=== PATIENT | male | born 1960 | race Caucasian/White ===

== ENCOUNTER → 2016-06-25 | Outpatient (CLI) | payer OTHER ==
[~2016-06-25] MED LIST: ALBUTEROL0.63 MG/3 INH; ALBUTEROL17 GM INH; ASPIRIN EC81 M1 PO; ATENOLOL50 MG PO; AUGMENTIN PO; BREO ELLIPTA 21 EACH; DALIRESP500 MCG PO; HYDROCHLOROTHIA25 MG PO; IBUPROFEN PO; INVOKANA100 MG PO; JANUVIA50 MG PO; LINZESS290 MCG PO; LISINOPRIL10 MG PO; LISINOPRIL20 MG PO; NEURONTIN600 MG PO; NORVASC10 MG PO; OXYCONTIN PO; PAIN RELIEF650 MG PO; PREDNISONE PO; PREDNISONE10 M1 PO; SINGULAIR PO; SPIRIVA18 MCG INH; SYMBICORT INH; XANAX1 MG PO; ZITHROMAX PO
== END | disposition home or self-care (01) ==
LOC: SEKG 08:31
DX: R07.9 Chest pain, unspecified (principal); R00.2 Palpitations
CPT/HCPCS: 93225; 93226

== ENCOUNTER 2016-09-17 17:28 | Emergency (ER) | payer OTHER ==
--- NOTE | ~2016-09-17 | CR72 ---
[facility] A Service of [facility] RADIOLOGY TEXT RESULTS PATIENT: ANDRADE WHITLEY LOCATION: SED : 59 UNIT #: [id number] AGE: [address]: Daron Cueva MD SEX: M ORDER DR: [id number] [place] [id number] [id number] MR#: [id number] Acc #: [id number] NAME: ANDRADE WHITLEY. : 1960 SEX: M STUDY DATE/TIME: 09/17/2016 18:12 UNIT: SED ROOM: STUDY DESCRIPTION: CR Chest Single View Portable Attending Physician: Daron Cueva M.D. Ordering Physician: Daron Cueva M.D. Primary Care Physician: Ina Griffin M.D. MEDICAL IMAGING REPORT This report is preliminary unless electronic signature is present. EXAM Portable chest 09/17/16 INDICATIONS Cough and shortness of air intermittently for the last 1.5 weeks. History of COPD. FINDINGS AP portable chest is compared with 08/29/2015. Cardiac and mediastinal contours are normal. The lungs are emphysematous but clear. No pneumothorax is seen. IMPRESSION Emphysema. No active disease. Dictated by... Bradley Apodaca Jr., M.D. THIS IS AN ELECTRONICALLY VERIFIED REPORT Bradley Apodaca Jr., M.D. at 09/18/2016 2:07 PM SUGAR/navi TD: 09/17/2016 21:26 JOB #: [id number] MEDICAL IMAGING REPORT Page 1 of 1
[~2016-09-17 17:28] MED LIST changes: -AUGMENTIN PO; -BREO ELLIPTA 21 EACH; -DALIRESP500 MCG PO; -IBUPROFEN PO; -JANUVIA50 MG PO; -LISINOPRIL20 MG PO; -NEURONTIN600 MG PO; -OXYCONTIN PO; -PREDNISONE10 M1 PO; -SINGULAIR PO; -XANAX1 MG PO; -ZITHROMAX PO
[2016-09-17] MEDS ORDERED: IBUPROFEN PO (17:37)
[2016-09-17] MEDS ORDERED: INVOKANA100 MG PO (17:39)
[2016-09-17] MEDS ORDERED: SPIRIVA18 MCG INH (17:39)
[2016-09-17] MEDS ORDERED: DALIRESP500 MCG PO (17:39)
[2016-09-17] MEDS ORDERED: SINGULAIR PO (17:39)
[2016-09-17] MEDS ORDERED: JANUVIA50 MG PO (17:40)
[2016-09-17] MEDS ORDERED: ASPIRIN EC81 M1 PO (17:40)
[2016-09-17] MEDS ORDERED: BREO ELLIPTA 21 EACH (17:41)
[2016-09-17] MEDS ORDERED: XANAX1 MG PO (17:42)
[2016-09-17] MEDS ORDERED: ATENOLOL50 MG PO (17:42)
[2016-09-17] MEDS ORDERED: HYDROCHLOROTHIA25 MG PO (17:42)
[2016-09-17] MEDS ORDERED: LISINOPRIL20 MG PO (17:42)
[2016-09-17] MEDS ORDERED: NEURONTIN600 MG PO (17:43)
== END 2016-09-17 19:37 | disposition home or self-care (01) ==
LOC: SED 17:28
DX: J44.1 Chronic obstructive pulmonary disease with (acute) exacerbation (principal); J44.0 Chronic obstructive pulmonary disease with (acute) lower respiratory infection; J20.9 Acute bronchitis, unspecified; F41.9 Anxiety disorder, unspecified; E78.5 Hyperlipidemia, unspecified; I10 Essential (primary) hypertension; F17.210 Nicotine dependence, cigarettes, uncomplicated; Z88.5 Allergy status to narcotic agent; Z79.82 Long term (current) use of aspirin; Z79.899 Other long term (current) drug therapy
CPT/HCPCS: 71010; 94640; 96372; 99284; J2930

== ENCOUNTER 2016-11-29 10:59 | Inpatient (IN) | payer OTHER ==
[~2016-11-29] VITALS: Ht 177.8 cm; Wt 75.5 kg
--- NOTE | ~2016-11-29 | CO ---
Unit #: [id number] #: [id number] Patient: ANDRADE WHITLEY [id number] [address] [place], [place] [address] [id number] MR#: [id number] NAME: ANDRADE WHITLEY ROOM: 556 Age: 55 Sex: M Admission Date: 11/29/2016 : 1960 Attending Physician: Denis Barrett M.D. Primary Care Physician: Ina Griffin M.D. Consultation Date: 11/30/2016 CONSULTATION REPORT REASON FOR CONSULTATION Abnormal CAT scan, COPD, pneumonia. HISTORY OF PRESENT ILLNESS The patient is a 55-year-old gentleman with COPD ongoing active tobacco use, who actually had back pain and had someone walk on his back. He heard a pop. He presented to the emergency room at [facility]. CT scan revealed evidence of pneumonia and he was admitted to the hospital. He then admitted that he did have some mucopurulent sputum for the last 2 or 3 days, some wheezing, no fever. No anginal-type chest pain. No hemoptysis. PAST MEDICAL HISTORY Remarkable for pulmonary nodule. He states that he is followed in my office for that. Quite frankly, I need my office notes for more details. Other medical problems include COPD, bronchiectasis, hypertension, diabetes, hepatitis C, cirrhosis, anxiety, rheumatoid arthritis. The electronic record states there was a benign pulmonary nodules. Again, I had to follow up details. MEDICATIONS At home, sounds like he is on Breo one puff a day, Spiriva once a day, albuterol as needed, Invokana, aspirin, Xanax, Januvia, hydrochlorothiazide, atenolol, lisinopril, Neurontin, Motrin, Daliresp, and Singulair. ALLERGIES Codeine. SOCIAL HISTORY He continues to smoke a pack of cigarettes a day. He drinks alcohol socially, but he states not daily. He denies any recreational drug use, marijuana, etc. Although, his tox screen was positive. REVIEW OF SYSTEMS No chest pain, palpitations, abdominal pain. He does have some choking and coughing with swallowing. No hematuria, dysuria, focal weakness, paresthesias, fever, chills, weight loss. Further review of systems as above or negative. PHYSICAL EXAMINATION GENERAL: Reveals a thin gentleman, in no acute distress. VITAL SIGNS: He is afebrile. Pulse 74, respiratory rate is 20, blood Unit #: [id number] #: [id number] Patient: WHITE,ANDRADE P pressure is 127/86, 5 feet 10 inches, 166 pounds. HEENT: Pupils are equal, round, and reactive to light. Sclerae anicteric. Head, atraumatic. NECK: Supple. No supraclavicular or cervical adenopathy appreciated. CHEST: Some expiratory wheeze. Rare rhonchi. No consolidation. No stridor. CARDIAC: Reveals regular rate and rhythm. No pathologic murmur, rub, or gallop. ABDOMEN: Soft and nontender. No hepatomegaly or rebound. EXTREMITIES: Reveal no clubbing, cyanosis, or edema. No calf tenderness. SKIN: Warm and dry without rash or diaphoresis. DIAGNOSTIC STUDIES IMAGING STUDIES: No chest x-ray. CT scan does have some tree-in-bud abnormalities particularly in right lower lobe. There is likely some mucus in his right mainstem and bronchus intermedius. There might be a small pulmonary nodule, but certainly nothing that is ominous appearing. LABORATORY RESULTS: His BUN is 19, creatinine is 0.7. Cardiac enzymes negative. White blood cell count was 30, now 20; hemoglobin was 18, now 16. Tox screen positive for benzodiazepines, amphetamines, and opiates. Urinalysis; mild proteinuria. Blood cultures performed and are pending. CARDIOVASCULAR STUDIES: Rhythm strip, sinus. IMPRESSION 1. Chronic obstructive pulmonary disease with exacerbation. 2. Ongoing active tobacco use. 3. Abnormal CAT scan consistent with pneumonia, possible aspiration. 4. Small pulmonary nodule; some mention by the patient of pulmonary nodule followed in our office. I see no CAT scans in the medical record. I will have to review my office notes tomorrow. 5. His abnormal tox screen and medical problems listed above. PLAN I will adjust antibiotics to cover aspiration pneumonia. Treatment of his COPD with steroids, I will add inhaled corticosteroids and long-acting beta agonist. I will review my office notes in the morning. Consider bronchoscopy, but he is clinically better. I do think he would benefit from speech evaluation. Thank you very much for allowing me to participate in the care of Mr. Whitley. Dictated by... Dex Hawk M.D. ANDREW/ovidio TD: 12/01/2016 03:44 JOB #: [id number] CC: Samy Boles M.D. Unit #: [id number] #: [id number] Patient: ANDRADE WHITLEY CONSULTATION REPORT Page 1 of 1 X Dex Hawk MD X CONSULTATION REPORT
--- NOTE | ~2016-11-29 | EKG ---
PATIENT: WHITE, ANDRADE UNIT #: [id number] Ventricular Rate: 106 BPM Atrial Rate: 106 BPM P-R Interval: 160 ms QRS Duration: 88 ms Q-T Interval: 360 ms QTC Calculation(Bezet): 478 ms P [place]: 48 degrees Calculated R [place]: -40 degrees Calculated T [place]: 57 degrees Diagnosis Line: Sinus tachycardia with Premature atrial complexes Diagnosis Line: Left axis deviation Diagnosis Line: Abnormal ECG Diagnosis Line: When compared with ECG of 05-AUG-2015 16:57, Diagnosis Line: Premature atrial complexes are now Present Diagnosis Line: Right bundle branch block is no longer Present Diagnosis Line: Confirmed by HARRIS FUENTES MD ([id number]) on Diagnosis Line: 12/08/2016 9:56:15 PM INTERPRETING MD: BARBIE
--- NOTE | ~2016-11-29 | DS ---
Unit #: [id number] #: [id number] Patient: ANDRADE WHITLEY [id number] [address] [place], [place] [address] [id number] I MR#: [id number] NAME: ANDRADE WHITLEY. ROOM: 217 Age: 55 Sex: M Admission Date: 11/29/2016 : 1960 Discharge Date: 12/03/2016 Attending Physician: Ester Villegas M.D. Primary Care Physician: Ina Griffin M.D. DISCHARGE SUMMARY PRINCIPAL DIAGNOSES 1. Sepsis secondary to right lower lobe pneumonia, question community acquired vs aspiration. 2. Acute exacerbation of chronic obstructive pulmonary disease. 3. Diabetes mellitus, type 2, noninsulin requiring and controlled. The patient hemoglobin A1c is 6.8. 4. Steroid-induced hyperglycemia. 5. Musculoskeletal chest pain. 6. Tobacco abuse. 7. Abnormal urine drug screen, positive for benzodiazepines, amphetamines, and opiates, I will note opiates were given in the emergency room prior to this test. 8. History of cardiomyopathy. 9. Rheumatoid arthritis. 10. Hypertension. 11. Hepatitis C with associated cirrhosis. 12. Anxiety. 13. Diabetic peripheral neuropathy. 14. Aneurysmal dilatation of the ascending thoracic aorta and aortic root. CONSULTANTS Dr. Hawk - pulmonology PROCEDURES CT of the chest without contrast on November 29, 2016, with no rib fractures, extensive tree-n-bud infiltrates throughout the right lung. Debris within the bronchus to the right lower lobe is noted, tree-n-bud infiltrates also noted in the lingula, extensive coronary artery calcifications noted. The aortic root measuring 4.3 cm and ascending thoracic aorta measuring 4.6 cm, cirrhotic morphology of the liver noted. CLINICAL HISTORY AND HOSPITAL COURSE Mr. Whitley is a 55-year-old male, who presents to the emergency department with upper back pain and left-sided rib pain in addition to cough. The patient was having some back pain at home and allowed someone to walk on his back. He felt a pop and subsequently developed some back pain and associated rib pain. In the emergency department, the patient was found to have pneumonia but no evidence of rib fracture. His white blood cell count was elevated at 33,000 as well as an elevated lactic acid. The patient was subsequently admitted. The patient was started on empiric IV antibiotics in addition to IV steroids due to an associated chronic obstructive pulmonary disease exacerbation. He was also started on pain medications in regards to his Unit #: [id number] #: [id number] Patient: ANDRADE WHITLEY. In regards to his pneumonia, ultimately Dr. Hawk was consulted given he follows with the patient on an outpatient basis. Unfortunately, over the course of the next several days, the patient improved significantly. He had no evidence of hypoxia and his associated leukocytosis significantly improved. I will note the review of records indicates that he has chronic leukocytosis at least while hospitalized and after off steroid treatment he should have followup CBC for evaluation. The patient is now significantly improved and when complete oral steroids and antibiotics on an outpatient basis as noted. The patient did develop some steroid-associated hyperglycemia but appears his diabetes is well-controlled at baseline and will continue his home dose of medication and this can be followed up as an outpatient. In regards to the patient's chest pain, this appears to be musculoskeletal, cardiac workup was negative. I will continue him on oxycodone on an outpatient basis though this should not be used long-term, I have also noted that the patient's urine drug screen was abnormal but he denies any illicit drug use. The patient will be discharged home later today. DISCHARGE CONDITION Stable. DISCHARGE STATUS Discharged to home. DISCHARGE MEDICATIONS 1. Ventolin inhaler two puffs four times daily p.r.n. for shortness of breath 2. Prednisone 20 mg tablet two tablets daily for five days 3. Spiriva 18 mcg one puff daily 4. Neurontin 600 mg t.i.d. 5. Januvia 50 mg daily 6. Xanax 1 mg p.o. t.i.d. 7. Breo Ellipta 200/25 mcg one puff b.i.d. 8. Atenolol 50mg daily 9. Hydrochlorothiazide 25 mg daily 10. Lisinopril increased to 40 mg p.o. daily 11. Singulair 10 mg daily 12. Aspirin 81 mg daily 13. Advil 800 mg p.o. b.i.d. 14. Oxycodone 5 mg p.o. q.6h p.r.n. for pain, number given 20 with no refill 15. Invokana 100 mg daily 16. Augmentin 875 mg p.o. b.i.d. for four days 17. Azithromycin 250 mg daily for four days DISCHARGE INSTRUCTIONS The patient was instructed to follow a heart healthy diet, he should refrain from any further tobacco use. He can increase activity as tolerated, continue his Accu-Cheks a.c. and h.s. at home. FOLLOWUP The patient will follow up with Dr. Hawk's nurse practitioner in two weeks at which point a repeat CT scan should be done to follow up his abnormal CT upon presentation, the patient will follow up with Dr. Hawk after this Unit #: [id number] #: [id number] Patient: ANDRADE WHITLEY followup CT scan is complete. The patient is to follow up with Dr. Boles in approximately two weeks as well. Dictated by... Ester Villegas M.D. LAURA/sun TD: 12/04/2016 11:16 JOB #: [id number] DISCHARGE SUMMARY Page 1 of 1 X Ester Villegas MD X DISCHARGE SUMMARY
--- NOTE | ~2016-11-29 | CT57 ---
[facility] A Service of [facility] & [facility] RADIOLOGY TEXT RESULTS PATIENT: ANDRADE WHITLEY LOCATION: [facility] 217-01 : 58 UNIT #: [id number] AGE: [address]: LASHELL CARUJ V SEX: M ORDER DR: [id number] [place] [id number] I MR#: [id number] Acc #: [id number] NAME: ANDRADE WHITLEY. : 1960 SEX: M STUDY DATE/TIME: 11/29/2016 11:52 UNIT: SEDOF ROOM: [id number] STUDY DESCRIPTION: CT Chest Wo Cont Attending Physician: Gabriela Santos M.D. Ordering Physician: Teetee Beth M.D. Primary Care Physician: Ina Griffin M.D. MEDICAL IMAGING REPORT This report is preliminary unless electronic signature is present. EXAM CT of the chest without contrast. INDICATIONS Rib pain. Patient reports a pop after someone was walking on his back 2 days ago. This pain is located on the left. TECHNIQUE Axial CT images were obtained from thoracic inlet through the dome of the diaphragm. No intravenous contrast material was administered. This CT exam was performed with one or more of the following radiation dose reduction techniques: automatic exposure control, adjustment of mA and/or kV according to patient size, and iterative reconstruction. FINDINGS Background emphysematous changes are noted. Patient does have fairly extensive tree-in-bud infiltrates seen particularly throughout the right lower lobe. Some of these areas have a more nodular configuration including a 1.4 cm nodule within the right lower lobe and a 6 mm nodule, also within the right lower lobe. The patient does appear to have some debris within the bronchus to the right lower lobe. Some additional tree-in-bud infiltrate is identified within the lingula. The thyroid gland, trachea and esophagus appear unremarkable. Mediastinal lymph nodes do not appear pathologically enlarged. Extensive coronary artery calcifications are present. Patient's liver is cirrhotic in morphology. No focal hepatic lesions are seen on this unenhanced examination. Patient does have cholelithiasis. No splenomegaly, ascites or large esophageal varices are seen. Punctate nonobstructing stone is seen within the left kidney, although, I am not convinced I can see any stones on the right. Review of bony windows does not demonstrate any rib fractures or focal soft tissue abnormalities. [facility] A Service of [facility] & [facility] RADIOLOGY TEXT RESULTS PATIENT: ANDRADE WHITLEY LOCATION: [place] [address] : 58 UNIT #: [id number] AGE: [address]: FARHAD CAR V SEX: M ORDER DR: Patient does appear to have a left renal cyst. IMPRESSION 1. No rib fractures are identified. 2. This patient has extensive tree-in-bud infiltrates noted throughout the right lung. These are likely infectious or inflammatory in nature, some of these do have a more nodular configuration and short-term CT followup in 3 months is recommended given background emphysematous changes. Furthermore the patient is noted to have some debris within the bronchus to the right lower lobe and potentially could benefit from bronchoscopy. 3. Tree and bud infiltrates identified within the lingula; again attention to this area on the patient's subsequent followup CT in 3 months is recommended. 4. Extensive coronary artery calcifications. 5. Also noted but not mentioned in the report is aneurysmal dilatation of the aortic root measuring up to 4.3 cm and the ascending thoracic aorta measuring up to 4.6 cm. 6. Cirrhotic morphology to the liver. No convincing evidence of portal hypertension on these images. 7. Cholelithiasis. Dictated by... Stephanie Shelton M.D. THIS IS AN ELECTRONICALLY VERIFIED REPORT Stephanie Shelton M.D. at 12/01/2016 5:01 PM NICOL/derik TD: 11/29/2016 15:32 JOB #: [id number] MEDICAL IMAGING REPORT Page 1 of 1
--- NOTE | ~2016-11-29 | EKG ---
PATIENT: WHITE, ANDRADE UNIT #: [id number] Ventricular Rate: 121 BPM Atrial Rate: 147 BPM P-R Interval: 160 ms QRS Duration: 94 ms Q-T Interval: 358 ms QTC Calculation(Bezet): 508 ms P [place]: 53 degrees Calculated R [place]: -32 degrees Calculated T [place]: 71 degrees Diagnosis Line: Sinus tachycardia with frequent Premature Diagnosis Line: ventricular complexes Premature atrial complexes Diagnosis Line: Possible Left atrial enlargement Diagnosis Line: Left axis deviation Diagnosis Line: Inferior infarct (cited on or before 13-JUN-2015) Diagnosis Line: Abnormal ECG Diagnosis Line: When compared with ECG of 05-AUG-2015 16:57, Diagnosis Line: Premature ventricular complexes are now Present Diagnosis Line: Right bundle branch block is no longer Present Diagnosis Line: Premature ventricular complexes Premature atrial Diagnosis Line: complexes are now Present Diagnosis Line: Confirmed by JOAN SALMON MD ([id number]) on 12/02/2016 Diagnosis Line: 10:43:13 PM INTERPRETING MD: VIKY GUEVARA
--- NOTE | ~2016-11-29 | HP ---
Unit #: [id number] #: [id number] Patient: ANDRADE WHITLEY [id number] [address] [place], [place] [address] [id number] I MR#: [id number] NAME: ANDRADE WHITLEY. ROOM: 556 Age: 55 Sex: M Admission Date: 11/29/2016 : 1960 Attending Physician: Denis Barrett M.D. Primary Care Physician: Ina Griffin M.D. HISTORY AND PHYSICAL CHIEF COMPLAINT Upper back pain, left sided rib pain, cough. DISCUSSION This is a 55-year-old gentleman with a history of severe COPD, hypertension, diabetes, hepatitis C, cirrhosis, anxiety, cholelithiasis, rheumatoid arthritis. He said that he has chronic back pain, had (1) on his back today and he said he heard a pop in the back and then he is having left rib pain. Went to the emergency room. He also mentioned that he has been having some cough, yellowish-brown phlegm for a few days and shortness of breath. Workup in the emergency room in [facility] where he was found to have, on CT scan, pneumonia with white count 30,000, elevated lactic acid level. He was admitted to Dr. Santos's group and then I was called by the nursing staff that patient wants to change the physician, does not want to see Dr. Santos's group, he wants [facility] to take care of it and I came to see the patient. He is complaining of upper back pain, left sided rib pain, shortness of breath with cough, yellowish-brown phlegm, chest pain which hurts to deep breathe but no nausea, no vomiting, no fever. Seems a little anxious also. PAST MEDICAL HISTORY 1. History of severe chronic COPD. 2. History of bronchiectasis. 3. History of benign pulmonary nodule. 4. History of cardiomyopathy, details are not known. 5. History of diabetes type 2. 6. Hypertension. 7. Rheumatoid arthritis. 8. History of hepatitis C, followed by Dr. Mich Bonds. He says he was treated. 9. History of cirrhosis. He was told cirrhosis by Dr. Mich Bonds. 10. History of cholelithiasis. 11. Anxiety. 12. History of diabetic peripheral neuropathy. PAST SURGICAL HISTORY 1. Tonsillectomy. 2. History of exploratory laparoscopic surgery in the past. SOCIAL HISTORY The patient lives at home with his children. He has a history of smoking. He smoked one pack per daily for 30 years. Drinks alcohol socially. Denies other illicit drug use. Unit #: [id number] #: [id number] Patient: ANDRADE WHITLEY FAMILY HISTORY Positive for history of COPD in the family. ALLERGIES Allergic to codeine. MEDICATIONS Medications from home as followin. Invokana 100 mg daily. 2. Aspirin 81 mg daily. 3. Januvia 50 mg daily. 4. Breo Ellipta 200/25 mcg daily. 5. Xanax 1 mg three times a day. 6. Hydrochlorothiazide 25 mg daily. 7. Atenolol 50 mg daily. 8. Lisinopril 20 mg daily. 9. Neurontin 600 mg three times daily. 10. Ventolin two puffs q.4 times a day p.r.n. 11. Motrin 800 mg twice a day. 12. Spiriva, one HandiHaler daily. 13. Daliresp 500 mcg daily. 14. Singulair 10 mg daily. REVIEW OF SYSTEMS Negative except as in History of Presenting Illness. PHYSICAL EXAMINATION GENERAL: Middle aged man lying in the bed comfortably, currently not in any distress. Seems anxious at this time. He is alert, awake, oriented x3. CURRENT VITAL SIGNS: Temperature 98.7, heart rate 64, respiratory rate 18, blood pressure 142/74. HEENT: Pupils equal, reactive to light and accommodation. Head is normocephalic, atraumatic. NECK: Supple. No JVD, no thyromegaly. LUNGS: Decreased air entry with bilateral scattered wheeze. HEART: S1, S2. Regular rate and rhythm. ABDOMEN: Soft, nontender, nondistended. Bowel sounds positive. EXTREMITIES: Inspection normal. No cyanosis, no clubbing, no edema. SKIN: Warm and dry. NEURO: Cranial nerves II-XII intact. No focal neurologic deficit. Power 5 out of 5 on both sides. DIAGNOSTIC STUDIES LABORATORY: Laboratory workup here today as following - Ammonia level is 34. UA is negative. Urine toxicology is positive for opiate, positive for amphetamine. Lactic acid level is 3.6. Troponin less than 0.05. Sodium 141, potassium 3.4, glucose 243, BUN 27, creatinin3 1.1, white count 30,000, hemoglobin 15, hematocrit 24, platelets 352. Unit #: [id number] #: [id number] Patient: WHITEANDRADE IMAGING: CT chest was done without contrast, showed no rib fracture. There is extensive tree-in-bud infiltrate noted throughout right lung. Also in the lingula. There is aneurysmal dilatation of aortic root, 4.3 cm. Ascending thoracic aorta 4.6 cm. Cirrhosis of the liver morphology and cholelithiasis. ASSESSMENT AND PLAN 1. Pneumonia: Extensive tree-in infiltrate in the right lung and lingula with elevate white count 30,000, elevated lactic acid level with history of sepsis protocol. Will start on IV Rocephin and Zithromax. IV fluids. Pulmonary consult, Dr. Hawk. 2. Aneurysmal dilatation of aortic root 4.3 cm, ascending thoracic aorta 4.6 cm. 3. Leukocytosis. 4. COPD with history of severe COPD: Start patient on dual nebulizer and continue Spiriva and Breo Ellipta, Singulair and Daliresp. 5. Hypertension, continue home medications: Hold hydrochlorothiazide. 6. Mild hypokalemia, replace. 7. History of diabetes: Continue home medication and Invokana and Januvia. Patient already started on Levemir 10 units. Continue insulin Januvia while on sliding scale. Place also on sliding scale. 8. History of diabetic peripheral neuropathy, on Neurontin. 9. Benign pulmonary nodule. 10. History of hepatitis C: He says he has been treated by Dr. Mich Bonds. 11. History of cirrhosis. 12. Anxiety. 13. Cholelithiasis. 14. History of rheumatoid arthritis. 15. DVT prophylaxis: Will place the patient on Lovenox. Dictated by Moe Verdugo TD: 11/30/2016 10:44 JOB #: [id number] HISTORY AND PHYSICAL Page 1 of 1 X X HISTORY AND PHYSICAL
[~2016-11-29 10:59] MED LIST changes: +BREO ELLIPTA 21 EACH; +DALIRESP500 MCG PO; +IBUPROFEN PO; +JANUVIA50 MG PO; +LISINOPRIL20 MG PO; +NEURONTIN600 MG PO; +SINGULAIR PO; +XANAX1 MG PO
[2016-11-29 11:52] LABS: BASOPHIL# 0.2 X10e3 (0-0.3); BASOPHIL% 0.6 % (0-2.5); EOSINOPHIL# 0.1 X10e3 (0-0.7); EOSINOPHIL% 0.3 % (0.0-7.0); HEMOGLOBIN 18.4 gm/dL (13.0-16.0); LYMPHOCYTE# 0.8 X10e3 (1.0-3.5); LYMPHOCYTE% 2.5 % (17.0-45.0); MEAN CELL VOLUME 94.3 FL (83-96); MEAN CORPUSCULAR HEMOGLOBIN 31.5 PG (28-34); MEAN CORPUSCULAR HGB CONC 33.4 g/dL (30-36); MEAN PLATELET VOLUME 8.2 FL (6.5-11.5); MONOCYTE# 1.4 X10e3 (0-1.0); MONOCYTE% 4.6 % (3.0-12.0); NEUTROPHIL# 28.4 X10e3 (1.5-7.1); PLATELET COUNT 362 X10e3 (140-420); RED BLOOD COUNT 5.83 X10e (3.90-5.60); RED CELL DISTRIBUTION WIDTH 13.8 % (11.0-15.5); WHITE BLOOD COUNT 30.8 X10e3 (4.0-10.5)
[2016-11-29 12:10] LABS: BUN/CREATININE RATIO 24.54; CALCIUM SERUM 9.7 mg/dL (8.4-10.2); CREATININE SERUM 1.1 mg/dL (0.6-1.4); GLOM FILT RATE Estimated 74.7 mL/min (>60); POTASSIUM 3.4 mmol/L (3.5-5.1)
[2016-11-29 12:11] LABS: DIFF IND YES
[2016-11-29 12:14] LABS: PLATELET ESTIMATE NORMAL (NORMAL); RBC NORMAL YES
[2016-11-29 13:26] LABS: POC - TROPONIN <0.05 ng/mL (<=0.05)
[2016-11-29 16:10] LABS: URINE SOURCE CLEAN CATCH
[2016-11-29 16:12] LABS: URINE APPEARANCE CLEAR; URINE BILIRUBIN NEG (NEG); URINE BLOOD TRACE-INTACT (NEG); URINE COLOR YELLOW; URINE GLUCOSE 300 MG/DL (NORM); URINE KETONE NEG (NEG); URINE LEUKOCYTE ESTERASE NEG (NEG); URINE NITRATE NEG (NEG); URINE PH 5.5 (5-8); URINE PROTEIN 1+ (NEG); URINE UROBILINOGEN 0.2 MG/DL (NORM)
[2016-11-29 16:20] LABS: MICRO INDICATED? YES
[2016-11-29 16:22] LABS: AMPHETAMINE POS (NEG); BARBITURATES NEG (NEG); BENZODIAZEPINES POS (NEG); COCAINE NEG (NEG); MARIJUANA NEG (NEG); OPIATES POS (NEG); TRICYCLIC ANTIDEPRESSANTS NEG (NEG); U METHADONE NEG (NEG)
[2016-11-29 16:47] LABS: URINE BACTERIA NEG (NEG); URINE RBC 0-2 /[HPF] (0-2); URINE SQUAMOUS EPITHELIAL CELL OCCAS /[HPF]; URINE WBC 0-2 /[HPF] (0-5)
[2016-11-30 05:01] LABS: HEMATOCRIT 48.7 % (38.0-50.0); HEMOGLOBIN 16.1 gm/dL (13.0-16.0); MEAN CELL VOLUME 94.3 FL (83-96); MEAN CORPUSCULAR HEMOGLOBIN 31.1 PG (28-34); MEAN PLATELET VOLUME 8.3 FL (6.5-11.5); RED BLOOD COUNT 5.16 X10e (3.90-5.60); RED CELL DISTRIBUTION WIDTH 13.6 % (11.0-15.5); WHITE BLOOD COUNT 20.9 X10e3 (4.0-10.5)
[2016-11-30 06:36] LABS: ALBUMIN SERUM 3.1 g/dL (3.5-5.0); BILIRUBIN,TOTAL 0.5 mg/dL (0.2-2.0); BUN/CREATININE RATIO 27.14; CALCIUM SERUM 8.5 mg/dL (8.4-10.2); CREATININE SERUM 0.7 mg/dL (0.6-1.4); GLOM FILT RATE Estimated 105.5 mL/min (>60); POTASSIUM 3.7 mmol/L (3.5-5.1)
[2016-12-02 05:44] LABS: HEMATOCRIT 46.6 % (38.0-50.0); HEMOGLOBIN 15.4 gm/dL (13.0-16.0); MEAN CELL VOLUME 94.4 FL (83-96); MEAN CORPUSCULAR HEMOGLOBIN 31.2 PG (28-34); MEAN CORPUSCULAR HGB CONC 33.1 g/dL (30-36); MEAN PLATELET VOLUME 8.1 FL (6.5-11.5); RED BLOOD COUNT 4.94 X10e (3.90-5.60); RED CELL DISTRIBUTION WIDTH 13.7 % (11.0-15.5)
[2016-12-02 06:03] LABS: CALCIUM SERUM 8.1 mg/dL (8.4-10.2); CREATININE SERUM 0.8 mg/dL (0.6-1.4); GLOM FILT RATE Estimated 99.9 mL/min (>60); POTASSIUM 3.6 mmol/L (3.5-5.1)
[2016-12-03] MEDS ORDERED: OXYCONTIN PO (15:23)
[2016-12-03] MEDS ORDERED: PREDNISONE10 M1 PO (15:25)
[2016-12-03] MEDS ORDERED: ZITHROMAX PO (15:25)
[2016-12-03] MEDS ORDERED: AUGMENTIN PO (15:26)
== END 2016-12-03 15:54 | disposition home or self-care (01) | DRG 871 ==
LOC: SED 10:59 → C2A 14:17 → SEDOF 14:17 → SED 14:41 → C5B 14:41 → SEDOF 18:23 → C5B 18:23 → C2A 12-01 16:16
PROVIDERS: Internal Medicine; Physician Assistant Medical; Student in an Organized Health Care Education/Training Program
DX: A41.9 Sepsis, unspecified organism (principal); J18.9 Pneumonia, unspecified organism; E11.42 Type 2 diabetes mellitus with diabetic polyneuropathy; J44.0 Chronic obstructive pulmonary disease with (acute) lower respiratory infection; J44.1 Chronic obstructive pulmonary disease with (acute) exacerbation; E11.65 Type 2 diabetes mellitus with hyperglycemia; Z79.84 Long term (current) use of oral hypoglycemic drugs; T38.0X5A Adverse effect of glucocorticoids and synthetic analogues, initial encounter; Y92.239 Unspecified place in hospital as the place of occurrence of the external cause; R07.89 Other chest pain; F17.210 Nicotine dependence, cigarettes, uncomplicated; M06.9 Rheumatoid arthritis, unspecified; I10 Essential (primary) hypertension; B19.20 Unspecified viral hepatitis C without hepatic coma; K74.60 Unspecified cirrhosis of liver; F41.9 Anxiety disorder, unspecified; I71.2 Thoracic aortic aneurysm, without rupture; G89.29 Other chronic pain; M54.9 Dorsalgia, unspecified; Z88.5 Allergy status to narcotic agent; Z83.6 Family history of other diseases of the respiratory system
CPT/HCPCS: 36415; 71250; 80048; 80053; 80307; 81003; 82140; 82553; 82947; 83036; 83605; 84484; 85025; 85027; 87040; 92610; 93005; 94640; 94664; 94760; 96361; 96374; 96375; 97165; 99285; G8987-GO; G8988-GO; G8989-GO; G8996-GN; G8997-GN; G8998-GN; J0456; J0696; J1170; J1650; J1815; J2270; J2543; J2920; J2930